=== PATIENT | female | born 2000 | race Hispanic/Latino ===

== ENCOUNTER 2022-12-30 15:42 | Emergency (ER) | payer OTHER ==
[~2022-12-30] VITALS: Ht 165.1 cm; Wt 64.5 kg
[2022-12-30 18:15] VITALS: BP 135/85
== END 2022-12-30 18:16 | disposition home or self-care (01) ==
LOC: ED 15:42
DX: R20.2 Paresthesia of skin (principal)
CPT/HCPCS: 36415; 70450; 70496; 70498; 80053; 84703; 85025; 85610; 99284 25; Q9967